=== PATIENT | female | born 1945 | race Caucasian/White ===

== ENCOUNTER → 2016-11-25 | Outpatient (CLI) | payer OTHER ==
[~2016-11-25] MED LIST: ASPI-435 PO; ATEN50TA PO; DIPH25CA37 PO; FEXO5TAB2 PO; GLIM4TAB2 PO; METF500T5 PO; TRIA37.5 PO
[2016-11-25 12:32] LABS: ESTIMATED AVERAGE GLUCOSE 140 mg/dl; HA1C FLAG Normal (Normal)
[2016-11-25 13:05] LABS: ALT/SGPT 29 U/L (12-78); AST/SGOT 24 U/L (15-37); BLOOD UREA NITROGEN 26 mg/dl (7-18); CALCIUM 9.4 mg/dl (8.5-10.1); CARBON DIOXIDE 28 mmol/L (21-32); CHLORIDE 103 mmol/L (98-107); CHOLESTEROL 132 mg/dl (0-200); CREATININE 0.94 mg/dl (0.60-1.20); GLUCOSE 119 mg/dl (70-99); POTASSIUM 4.1 mmol/L (3.5-5.1); SODIUM 138 mmol/L (136-145)
[2016-11-25 13:07] LABS: ALB/GLOB RATIO 1.1 (0.9-2); ALKALINE PHOSPHATASE 67 U/L (45-117); CHOLESTEROL/HDL RATIO 2.8; HDL CHOLESTEROL 48 mg/dl; LDL CHOLESTEROL CALCULATED 57 mg/dl; TRIGLYCERIDES 133 mg/dl (0-150); VERY LOW DENSITY LIPOPROT CALC 27 mg/dl
== END | disposition home or self-care (01) ==
LOC: C.LABPBG 08:11
PROVIDERS: ATTEND Physician Assistant
DX: Z00.00 Encounter for general adult medical examination without abnormal findings (principal); E11.9 Type 2 diabetes mellitus without complications

== ENCOUNTER → 2017-01-01 | Outpatient (CLI) | payer OTHER ==
--- NOTE | 2017-01-08 18:42 | CODING QUERY MEDICAL NECESSITY ---
SUPPORTING DIAGNOSIS NEEDED A supporting diagnosis is required for the test/procedure performed on this patient in order for us to be reimbursed by the patient's insurance. Please provide a supporting diagnosis for the following test/procedure listed below next to the test name along with your signature. *If there is no additional diagnosis for this patient that would support the following test/procedure please document that below next to the test/procedure. Test(s)/Procedure(s) that require a supporting diagnosis: * DXA, BONE DENSITY AXIAL DIAGNOSIS: Provider Signature: Date: Thank you Nancie [employer] PDF Information Management Once completed, please kindly fax back to [phone] For questions please call [phone]
== END | disposition home or self-care (01) ==
LOC: C.MAMM 08:13
PROVIDERS: ATTEND Physician Assistant
DX: Z00.00 Encounter for general adult medical examination without abnormal findings (principal); M19.90 Unspecified osteoarthritis, unspecified site

== ENCOUNTER → 2017-03-18 | Outpatient (CLI) | payer OTHER ==
[2017-03-18 13:46] LABS: BLOOD UREA NITROGEN 27 mg/dl (7-18); BUN/CREATININE RATIO 24.6 (10-20); CALCIUM 9.9 mg/dl (8.5-10.1); CARBON DIOXIDE 27 mmol/L (21-32); CHLORIDE 104 mmol/L (98-107); ESTIMATED AVERAGE GLUCOSE 148 mg/dl; GLUCOSE 126 mg/dl (70-99); HA1C FLAG Normal (Normal); POTASSIUM 4.6 mmol/L (3.5-5.1); SODIUM 137 mmol/L (136-145)
[2017-03-18 13:59] LABS: THYROID STIMULATING HORMONE 0.758 uIu/ml (0.300-4.500)
== END | disposition home or self-care (01) ==
LOC: C.LABPBG 07:49
PROVIDERS: ATTEND Nurse Practitioner Family
DX: E11.9 Type 2 diabetes mellitus without complications (principal)